=== PATIENT | male | born 1960 | race Caucasian/White ===

== ENCOUNTER 2022-12-15 06:40 | Inpatient (IN) | payer OTHER ==
[~2022-12-15] VITALS: Ht 175.3 cm; Wt 89.8 kg
[2022-12-15 06:41] VITALS: BP 146/84
--- NOTE | 2022-12-15 06:55 | NUR ---
PT AMBULATED TO BED 11
--- NOTE | 2022-12-15 06:57 | NUR ---
PT COMPLAINING OF CP SINCE 499. SUBSTERNAL. PRESSURE-LIKE. NON-RADIATING. ASSOCIATED SYMPTOM INCLUDES NAUSEA. SKIN WARM DRY INTACT. RESP E/U. PT SPEAKING IN FULL CLEAR SENTENCES. STATES "WORK HAS BEEN STRESSFULL". ALSO ADMITS TO DIARRHEA. HX CANCER, DM, HTN
[2022-12-15] MEDS ORDERED: FAMOTIDINE 20 MG/2 ML VIAL IVP ONE (07:05)
--- NOTE | 2022-12-15 07:12 | NUR ---
REPORT TO JANIYA RUBI
--- NOTE | 2022-12-15 07:22 | NUR ---
ASSUMED PATIENT CARE, CONCUR WITH PRIOR NURSING ASSESSMENT.
[2022-12-15 07:39] LABS: BASOPHILS % (AUTO) 0.4 % (0.0-2.0); EOSINOPHILS # (AUTO) 0.2 K/uL (0-0.4); EOSINOPHILS % (AUTO) 2.6 % (0.0-4.0); HEMOGLOBIN 15.9 g/dL (12.0-18.0); LYMPHOCYTES % (AUTO) 14.8 % (20.5-51.1); MEAN CORPUSCULAR HEMOGLOBIN 31 pg (27-31); MEAN CORPUSCULAR HGB CONC 34 g/dL (33-37); MEAN CORPUSCULAR VOLUME 91.4 fL (80-94); MONOCYTES # (AUTO) 0.8 K/uL (0.8-1.0); MONOCYTES % (AUTO) 10.7 % (1.7-9.3); NEUTROPHILS % (AUTO) 71.5 % (42.2-75.2); PLATELET COUNT (AUTO) 225 K/uL (140-450); RED BLOOD CELL COUNT(AUTO) 5.14 MIL/uL (4.20-6.10); RED CELL DISTRIBUTION WIDTH 13.1 % (11.6-13.7)
[2022-12-15 07:58] LABS: ANION GAP 8.8 (8-16); CARBON DIOXIDE 32.1 mmol/L (21-32); CREATININE 0.8 mg/dL (0.6-1.3); POTASSIUM 3.9 mmol/L (3.5-5.1); TOTAL BILIRUBIN 0.6 mg/dL (0.0-1.0)
[2022-12-15 08:03] LABS: LIPASE 111 U/L (73-393)
--- NOTE | 2022-12-15 08:04 | NUR ---
CRITICAL TROPONIN RESULT (415) REPORTED BY LAB, DR LICEA MADE AWARE.
[2022-12-15] MEDS ORDERED: DICYCLOMINE HCL LIQUID 20 MG, ALUMINUM HYD/MAG/SIMETHICONE 30 ML, LIDOCAINE VISCOUS 2% ... PO ONE ×3 (08:10)
[2022-12-15] MEDS ORDERED: ONDANSETRON 4 MG/2 ML VIAL IVP ONE (08:15)
[2022-12-15] MEDS ORDERED: DICYCLOMINE HCL LIQUID 10 MG/5 ML UDC ONE (08:15)
[2022-12-15] MEDS ORDERED: ALUMINUM HYD/MAG/SIMETHICONE 30 ML UDC ONE (08:15)
[2022-12-15] MEDS ORDERED: MORPHINE SULFATE 4 MG/ML SYR IVP ONE (08:30)
[2022-12-15] MEDS ORDERED: NACL 0.9% 1,000 ML IV ONE (09:20)
[2022-12-15] MEDS ORDERED: ONDANSETRON 4 MG/2 ML VIAL IVP PRN (10:15)
[2022-12-15] MEDS ORDERED: HYDROcodone/APAP 5/325 MG 1 TAB TAB PO PRN (10:15)
[2022-12-15] MEDS ORDERED: MORPHINE SULFATE 4 MG/ML SYR IVP PRN (10:15)
[2022-12-15] MEDS ORDERED: ACETAMINOPHEN 325 MG TAB PO PRN (10:15)
[2022-12-15] MEDS ORDERED: HEPARIN PER PHARMACY MC SCH (10:20)
[2022-12-15] MEDS ORDERED: METF500S8 PO (10:29)
[2022-12-15] MEDS ORDERED: LISI40TA12 PO (10:29)
[2022-12-15] MEDS ORDERED: hePARIN / DEXT 5% PREMIX 250 ML IV SCH (10:55)
[2022-12-15 10:59] LABS: PROTHROMBIN TIME 10.4 secs (10.8-13.4)
--- NOTE | 2022-12-15 11:00 | NUR ---
RECIEVED REPORT FROM ER NURSE FOR CONTINUITY OF CARE. PT WAS STABLE UPON TRANSPORT AND AMBULATED TO THE BEDSIDE. PT IS A&OX4, SKIN IS INTACT, NO COMPLAINTS OF PAIN AT THIS TIME, STATING AT 98% ON RA, AND PLACED ON A CARDIAC DIET. PT HAS A 20G IN HIS R HAND AND RAC, BOTH ARE PATENT AND INTACT. THE RAC IS INFUSING NS @80ML/HR. ALL SAFETY MEASURES IN PLACE AND WILL CONTINUE TO MONITOR PT.
--- NOTE | 2022-12-15 11:05 | NUR ---
DISPO AND MEDICAL DECISION MAKING INPATIENT ADMISSSION FOR FURTHER MANAGEMENT. PATIENT CARE REPORT ENDORSED TO [facility], CONTINUITY OF CARE ENDORSED. PATIENT UPDATED OF PLAN OF CARE.
[2022-12-15 12:00] VITALS: BP 144/92
[2022-12-15] MEDS: NACL 0.9% 1,000 ML IV SCH ×2 (12:00→22:52)
[2022-12-15] MEDS ORDERED: LOVENOX 1MG/KG Q12H SUBQ SCH (12:15)
[2022-12-15] MEDS ORDERED: CLOPIDOGREL 75 MG TAB PO SCH (12:19)
[2022-12-15] MEDS: carvediloL 6.25 MG TAB PO SCH ×2 (12:46→20:23)
[2022-12-15] MEDS: ATORVASTATIN 80 MG TAB PO SCH (12:46)
[2022-12-15] MEDS: ENOXAPARIN 100 MG/ML SYR SUBQ SCH ×2 (12:51→20:27)
[2022-12-15] MEDS ORDERED: DEXTROSE 50% 50 ML SYR IVP PRN (15:05)
--- NOTE | 2022-12-15 15:12 | NUR ---
DISCHARGE PLANNING: (LATE ENTRY) RECEIVED ORDER FOR HLOC TRANSFER FOR CARDIAC CATHETERIZATION WITH CORONARY ANGIOGRAPHY. CONTACTED DALIA ANDERSON AT [phone] [phone], ABLE TO SPEAK TO ZELDA. PER ZELDA CM ASSIGNED IS IRMAHUAN [id number]. ZELDA STATED THEIR TECHNOLOGY ASSISTANT WILL REVIEW ONCE ORDER AND CLINICALS RECEIVED. ZELDA PROVIDED THIS CM FAX #[phone]. ORDER AND CLINICALS SENT TO THE PROVIDED NUMBER. WILL FOLLOW UP. Addendum: 12/15/22 at 1620 by Saima Alvarez CM MADE A FOLLOW UP CALL TO DALIA ANDERSON, ABLE TO SPEAK TO KENZIE. KENZIE CONFIRMED THAT THEY RECEIVED THE ORDER FOR HLOC TRANSFER AND CLINICALS. PER KENZIE, ORDER BEEN ATTACHED TO [facility], HOWEVER, THE SAID CM LEFT FOR THE DAY AND SHE DOES NOT KNOW WHO IS COVERING. KENZIE PROVIDED THIS CM THEIR AFTER HOURS NUMBER [phone]. THIS RECEIVING CHECKER PROVIDED KENZIE OF THIS CM'S CONTACT INFO FOR UPDATES. Addendum: 12/16/22 at 1629 by Brooke Alegre RN DC PLANNING: RECEIVED A MESSAGE AT 10AM FROM JAE GARCIA CM AMA, CALLED HER BACK AT 1100AM LEFT A MESSAGE X2 NO ANSWER CALLED STEPHY ARROYO FROM [facility] [phone] UNABLE TO LEAVE MESSAGE. CRUZ TO FOLLOW Addendum: 12/16/22 at 1659 by Brooke Alegre RN DC PLANNING: RECEIVED A CALL FROM STEPHY ARROYO AT [facility] STATED MIGHT GET A BED TONIGHT AT [facility] THEIR TECHNOLOGY ASSISTANT DR ODELL MALONE WILL CALL DR CARRERA FOR PEER TO PEER . NOTIFIED DR CARRERA TO EXPECT A CALL. NOTIFIED PT'S DAUGHTER JOHN EXPLAINED THAT PER INSURANCE PURPOSE HE HAS TO GO TO CONTRACTED FACILITIES WHO HAVE A BED. NOTIFIED TATE RUBI
[2022-12-15 16:00] VITALS: BP 136/84
[2022-12-15] MEDS: BLOOD GLUCOSE MONITORING 1 DEV DEV FS SCH ×2 (16:26→21:08)
[2022-12-15] MEDS: INSULIN LISPRO SLIDING SCALE 100 UNITS/ML VIAL SUBQ PRN (16:26)
--- NOTE | 2022-12-15 19:05 | NUR ---
ENDORSED PT TO EARTH SCIENCE PROFESSOR FOR CONTINUITY OF CARE. PT STABLE AT THIS TIME.
--- NOTE | 2022-12-15 19:06 | NUR ---
RECEIVED PT FROM MORNING SHIFT NURSE. PT IS AOX4, AMBULATORY, ABLE TO VERBALIZE NEEDS AND ABLE TO FOLLOW COMMANDS. PT IS ON ROOM AIR AND ON CARDIAC DIET. PT HAS IV ON RIGHT HAND GAUGE 20 AND RIGHT AC GAUGE 20 RUNNING WITH NS AT 80. PT DENIES PAIN AT THIS TIME. NO S/S OF RESPIRATORY DISTRESS NOTED. PT SKIN IS INTACT. ALL SAFETY MEASURES IMPLEMENTED. BED IN LOW POSITION, BED WHEELS ON LOCK AND CALL LIGHT WITHIN REACH.
[2022-12-15 20:00] VITALS: BP 111/75
--- NOTE | 2022-12-15 20:27 | NUR ---
ALL SCHEDULED AND PRESCRIBED MEDICATION WAS GIVEN TO PT PER MD ORDER. ALL SAFETY MEASURES IMPLEMENTED. BED IN LOW POSITION, BED WHEELS ON LOCK AND CALL LIGHT WITHIN REACH.
--- NOTE | 2022-12-15 21:08 | NUR ---
PT BLOOD GLUCOSE IS 144. NO INSULIN COVERAGE NEEDED.
[2022-12-16] VITALS: BP 106/62
--- NOTE | 2022-12-16 | NUR ---
PT IS SLEEPING. CHEST RISE AND FALL SYMMETRICALLY NOTED. RESPIRATION IS EVEN AND UNLABORED. ALL SAFETY MEASURES IMPLEMENTED. BED IN LOW POSITION, BED WHEELS ON LOCK AND CALL LIGHT WITHIN REACH.
--- NOTE | 2022-12-16 02:00 | NUR ---
CHECKED THE PT STILL SLEEPING. CHEST RISE AND FALL SYMMETRICALLY NOTED. RESPIRATION IS EVEN AND UNLABORED. ALL SAFETY MEASURES IMPLEMENTED. BED IN LOW POSITION, BED WHEELS ON LOCK AND CALL LIGHT WITHIN REACH.
[2022-12-16 04:00] VITALS: BP 112/71
--- NOTE | 2022-12-16 04:00 | NUR ---
PT WAS GIVEN WARM BLANKET. NO COMPLAIN OF PAIN. NO S/S OF RESPIRATORY DISTRESS NOTED. ALL SAFETY MEASURES IMPLEMENTED. BED IN LOW POSITION, BED WHEELS ON LOCK AND CALL LIGHT WITHIN REACH.
[2022-12-16] MEDS: BLOOD GLUCOSE MONITORING 1 DEV DEV FS SCH ×4 (06:34→20:35)
--- NOTE | 2022-12-16 06:34 | NUR ---
BLOOD GLUCOSE IS 134. NO INSULIN COVERAGE NEEDED. ALL SAFETY MEASURES IMPLEMENTED. BED IN LOW POSITION, BED WHEELS ON LOCK AND CALL LIGHT WITHIN REACH.
[2022-12-16 06:47] LABS: BASOPHILS % (AUTO) 0.4 % (0.0-2.0); EOSINOPHILS # (AUTO) 0.2 K/uL (0-0.4); EOSINOPHILS % (AUTO) 3.4 % (0.0-4.0); HEMATOCRIT 39.9 % (36-52); HEMOGLOBIN 13.6 g/dL (12.0-18.0); LYMPHOCYTES # (AUTO) 1.7 K/uL (2.0-11.5); LYMPHOCYTES % (AUTO) 26.2 % (20.5-51.1); MEAN CORPUSCULAR HEMOGLOBIN 31 pg (27-31); MEAN CORPUSCULAR HGB CONC 34 g/dL (33-37); MEAN CORPUSCULAR VOLUME 91.4 fL (80-94); MONOCYTES # (AUTO) 0.7 K/uL (0.8-1.0); MONOCYTES % (AUTO) 11.4 % (1.7-9.3); NEUTROPHILS # (AUTO) 3.7 K/uL (1.8-7.7); NEUTROPHILS % (AUTO) 58.6 % (42.2-75.2); PLATELET COUNT (AUTO) 203 K/uL (140-450); RED BLOOD CELL COUNT(AUTO) 4.36 MIL/uL (4.20-6.10); RED CELL DISTRIBUTION WIDTH 12.8 % (11.6-13.7); WHITE BLOOD COUNT (AUTO) 6.4 K/uL (4.8-10.8)
[2022-12-16 06:50] LABS: ANION GAP 7.6 (8-16); CARBON DIOXIDE 32.4 mmol/L (21-32); CREATININE 0.9 mg/dL (0.6-1.3)
--- NOTE | 2022-12-16 07:09 | NUR ---
PT IS STABLE. ENDORSED PT TO MORNING SHIFT NURSE FOR CONTINUITY OF CARE.
--- NOTE | 2022-12-16 07:15 | NUR ---
RECEIVED REPORT FROM BED LASTER NURSE FOR CONTINUITY OF CARE. PT STABLE AT THIS TIME.
[2022-12-16 08:00] VITALS: BP 136/84
[2022-12-16] MEDS: carvediloL 6.25 MG TAB PO SCH ×2 (08:53→20:16)
[2022-12-16] MEDS: ATORVASTATIN 80 MG TAB PO SCH (08:53)
[2022-12-16] MEDS: ENOXAPARIN 100 MG/ML SYR SUBQ SCH ×2 (08:57→20:19)
[2022-12-16] MEDS ORDERED: CLOPIDOGREL 75 MG TAB PO SCH (09:00)
--- NOTE | 2022-12-16 09:36 | NUR ---
PATIENT HAS BEEN SCREENED AND CATEGORIZED MODERATE NUTRITION RISK. PATIENT WILL BE SEEN WITHIN 3-5 DAYS OF ADMISSION. REVIEWED BY GERALDO NEGRON RD
[2022-12-16] MEDS: NACL 0.9% 1,000 ML IV SCH (11:53)
[2022-12-16] MEDS: INSULIN LISPRO SLIDING SCALE 100 UNITS/ML VIAL SUBQ PRN ×2 (11:54→20:36)
[2022-12-16 12:00] VITALS: BP 113/78
--- NOTE | 2022-12-16 13:39 | NUR ---
DC PLANNING ASSESSMENT COMPLETE SEE ASSESSMENT FOR DETAILS TENTATIVE DC PLAN IS FOR PATIENT TO BE TRANSFERRED TO [facility]. CM CURRENTLY WORKING ON HLOC PLACEMENT. Addendum: 12/16/22 at 1340 by Christopher ROONEY Amended: Links added.
[2022-12-16 16:00] VITALS: BP 125/78
--- NOTE | 2022-12-16 19:15 | NUR ---
ENDORSED PT TO STITCHER SPECIAL MACHINE FOR CONTINUITY OF CARE. PT STABLE AT THIS TIME.
--- NOTE | 2022-12-16 19:16 | NUR ---
RECEIVED PT FROM MORNING SHIFT NURSE. PT IS AOX4, AMBULATORY, ABLE TO VERBALIZE NEEDS AND ABLE TO FOLLOW COMMANDS. PT IS ON ROOM AIR AND ON CARDIAC DIET. PT HAS IV ON RIGHT HAND GAUGE 20 AND RIGHT AC GAUGE 20 RUNNING WITH NS AT 80. PT DENIES PAIN AT THIS TIME. NO S/S OF RESPIRATORY DISTRESS NOTED. PT SKIN IS INTACT. PT WILL BE TRANSFERRED TO [facility]. WILL WAIT FOR THE CALL FOR THE ROOM AND TRANSPORTATION. ALL SAFETY MEASURES IMPLEMENTED. BED IN LOW POSITION, BED WHEELS ON LOCK AND CALL LIGHT WITHIN REACH.
[2022-12-16 20:00] VITALS: BP 138/85
--- NOTE | 2022-12-16 20:36 | NUR ---
PT BLOOD GLUCOSE IS 158. HUMALOG 2 UNITS WAS GIVEN TO PT.
--- NOTE | 2022-12-16 22:00 | NUR ---
RECEIVED CALL FROM CHRISS OF [employer]. CHRISS TOLD ME THAT [facility] WILL ELECTRIC FAN ASSEMBLER THE PT. SHE ALSO ADDED TO CONTACT DIANA AT [phone] TO GIVE REPORT.
--- NOTE | 2022-12-16 23:00 | NUR ---
CALL NURSE ORTIZ OF [facility] AND SPOKE TO TED WHO WILL RECEIVED THE PT ON [facility]. REPORT WAS GIVEN TO TED.
[2022-12-17] VITALS: BP 136/80
--- NOTE | 2022-12-17 00:15 | NUR ---
PT WAS CREDIT UNION FIELD EXAMINER BY [facility] WITH IRENA([place]) GOING TO ROOM 660 TELE DEPARTMENT OF [facility]. PT WAS STABLE, NO COMPLAIN OF PAIN, AND NO S.S OF RESPIRATORY DISTRESS. ALL THE BELONGINGS WAS WITH THE PT.
[2022-12-17] MEDS: NACL 0.9% 1,000 ML IV SCH (00:29)
== END 2022-12-17 00:15 | disposition short-term general hospital (02) | DRG 282 ==
LOC: MED 06:40 → MTU 10:19
PROVIDERS: ADMIT Student in an Organized Health Care Education/Training Program; ATTEND Student in an Organized Health Care Education/Training Program
DX: I21.4 Non-ST elevation (NSTEMI) myocardial infarction (principal); E11.9 Type 2 diabetes mellitus without complications; I24.9 Acute ischemic heart disease, unspecified; I10 Essential (primary) hypertension; E78.5 Hyperlipidemia, unspecified; Z20.822 Contact with and (suspected) exposure to COVID-19; Z88.6 Allergy status to analgesic agent; Z80.9 Family history of malignant neoplasm, unspecified
CPT/HCPCS: 36415; 71045; 80048; 80053; 82948; 83690; 83880; 84484; 85025; 85379; 85610; 85730; 87081; 93005; 96361; 96374; 96375; 99285; J1644; J1650; J1815; J2270; J2405; J3490